=== PATIENT | female | born 1945 | race Caucasian/White ===

== ENCOUNTER 2018-08-06 15:38 | Emergency (ER) | payer MEDICARE, OTHER ==
[~2018-08-06] VITALS: Ht 177.8 cm; Wt 94.0 kg
[~2018-08-06 15:38] MED LIST: ASPI-496 PO; CARV-39 PO; CELE200C PO; LATA2.5D3 EACHEYE; LOSA50TA7 PO; MV,C400T2 PO; PRAV20TA2 PO
[2018-08-06] MEDS ORDERED: HYDR12.53 PO (16:24)
[2018-08-06] MEDS ORDERED: MAGN250T9 PO (16:24)
[2018-08-06] MEDS ORDERED: CARV6.252 PO (16:24)
[2018-08-06] MEDS ORDERED: CO Q10 PO (16:24)
[2018-08-06] MEDS ORDERED: SALM1CAP4 PO (16:24)
[2018-08-06] MEDS ORDERED: ATOR40TA78 PO (16:24)
[2018-08-06] MEDS ORDERED: ONDANSETRON ODT 4 MG ONE (16:45)
[2018-08-06] MEDS ORDERED: MORPHINE SULFATE 4 MG/ML, 1ML ONE (16:46)
[2018-08-06] MEDS ORDERED: DIAZEPAM 5 MG TABLET ONE (16:47)
[2018-08-06] MEDS ORDERED: DIAZEPAM 5 MG/ML, 2ML IVPush ONE (17:00)
[2018-08-06] MEDS ORDERED: ONDANSETRON ODT 4 MG PO ONE (17:00)
[2018-08-06] MEDS ORDERED: MORPHINE SULFATE 4 MG/ML, 1ML IVPush PRN (17:00)
[2018-08-06] MEDS ORDERED: SODIUM CHLORIDE FLUSH 10ML SYR IVF ONE (17:00)
[2018-08-06] MEDS ORDERED: DIAZEPAM 5 MG TABLET PO ONE (17:00)
[2018-08-06 17:04] LABS: BASOPHILS # (AUTO) 0.04 x10^3/uL (0-0.1); BASOPHILS % (AUTO) 1 % (0-1); EOSINOPHILS # (AUTO) 0.01 x10^3/uL (0-0.4); EOSINOPHILS % (AUTO) 0 % (1-7); LYMPHOCYTES # (AUTO) 1.64 x10^3/uL (1-3.4); LYMPHOCYTES % (AUTO) 21 % (22-44); MD NO; MEAN CORPUSCULAR HEMOGLOBIN 34.4 pg (27.0-34.8); MEAN CORPUSCULAR VOLUME 98.3 fL (80-100); MEAN PLATELET VOLUME 7.7 fL (7.4-10.4); MONOCYTES # (AUTO) 0.93 x10^3/uL (0.2-0.8); MONOCYTES % (AUTO) 12 % (2-9); NEUTROPHILS # (AUTO) 5.16 x10^3/uL (1.8-6.8); NEUTROPHILS % (AUTO) 66 % (42-75); PLATELET COUNT 201 x10^3/uL (130-400); RED BLOOD COUNT 3.53 x10^6/uL (3.82-5.3); RED CELL DISTRIBUTION WIDTH 12.2 % (9.6-15.2)
[2018-08-06 17:16] LABS: ALANINE AMINOTRANSFERASE 16 U/L (12-78); ALBUMIN 3.3 g/dL (3.4-5.0); ANION GAP 7 mmol/L (5-15); CHLORIDE 102 mmol/L (98-107)
[2018-08-06 17:18] LABS: ALKALINE PHOSPHATASE 155 U/L (45-117); BILIRUBIN,TOTAL 0.8 mg/dL (0.2-1.0); TOTAL PROTEIN 7.6 g/dL (6.4-8.2)
[2018-08-06 17:23] LABS: CULTURE INDICATED? NO; MICROSCOPIC NOT IND
[2018-08-06 17:52] VITALS: BP 133/59
== END 2018-08-06 18:20 | disposition home or self-care (01) ==
LOC: ED 17:45
DX: M54.5 Low back pain (principal); I10 Essential (primary) hypertension; E78.00 Pure hypercholesterolemia, unspecified; M19.90 Unspecified osteoarthritis, unspecified site; Z86.73 Personal history of transient ischemic attack (TIA), and cerebral infarction without residual deficits
CPT/HCPCS: 36415; 72110; 80053; 81003; 83690; 85025; 96374; 99285; Q0162

== ENCOUNTER → 2018-10-09 | Outpatient (CLI) | payer MEDICARE ==
[~2018-10-09] MED LIST changes: +ATOR40TA78 PO; +CARV6.252 PO; +CO Q10 PO; +HYDR12.53 PO; +MAGN250T9 PO; +RIVA20TA PO; +SALM1CAP4 PO
== END | disposition home or self-care (01) ==
LOC: STAR 09:58
PROVIDERS: ATTEND Urology
DX: Z01.818 Encounter for other preprocedural examination (principal); N20.0 Calculus of kidney
CPT/HCPCS: 93005

== ENCOUNTER 2018-10-14 09:57 | Day surgery (SDC) | payer MEDICARE ==
[~2018-10-14] VITALS: Ht 177.8 cm; Wt 90.5 kg
[2018-10-14] MEDS ORDERED: LACTATED RINGERS 1,000 ML IV SCH (10:23)
[2018-10-14 11:00] VITALS: BP 148/63
[2018-10-14] MEDS ORDERED: FENTANYL PF 100 MCG/2ML ONE ×2 (12:31→13:49)
[2018-10-14] MEDS ORDERED: MIDAZOLAM 1 MG/ML, 2ML ONE (12:31)
[2018-10-14] MEDS ORDERED: METOCLOPRAMIDE 5 MG/ML, 2ML ONE (12:33)
[2018-10-14] MEDS ORDERED: PROPOFOL 10 MG/ML, 20ML ONE (12:33)
[2018-10-14] MEDS ORDERED: DEXAMETHASONE 4 MG/ML, 1ML ONE (12:33)
[2018-10-14] MEDS ORDERED: LACTATED RINGERS 1,000 ML ONE (12:33)
[2018-10-14] MEDS ORDERED: ONDANSETRON 2MG/ML, 2ML ONE (12:33)
[2018-10-14] MEDS ORDERED: LIDOCAINE 2% 100MG/5ML SYRINGE ONE (12:33)
[2018-10-14] MEDS ORDERED: MEPERIDINE/PF 25MG/0.5ML IVPush PRN (13:30)
[2018-10-14] MEDS ORDERED: MIDAZOLAM 1 MG/ML, 2ML IV PRN (13:30)
[2018-10-14] MEDS ORDERED: ONDANSETRON 2MG/ML, 2ML IVPush PRN (13:30)
[2018-10-14] MEDS ORDERED: LABETALOL 5MG/ML, 20ML IV PRN (13:30)
[2018-10-14] MEDS ORDERED: OXYcodone 5 MG/5 ML ORAL.SOL UDC PO PRN (13:30)
[2018-10-14] MEDS ORDERED: HYDROmorphone 1 MG/ML, 1ML IV PRN (13:30)
[2018-10-14] MEDS ORDERED: OXYcodone 5 MG/5 ML ORAL.SOL UDC ONE (13:49)
[2018-10-14] MEDS: FENTANYL PF 100 MCG/2ML IV PRN ×2 (13:53→14:06)
[2018-10-14] MEDS ORDERED: hydrALAzine 20 MG/ML, 1ML ONE (14:15)
== END 2018-10-14 16:25 | disposition home or self-care (01) ==
LOC: OUT 09:57
PROVIDERS: ATTEND Urology
DX: N20.0 Calculus of kidney (principal); I10 Essential (primary) hypertension; M19.90 Unspecified osteoarthritis, unspecified site; E78.00 Pure hypercholesterolemia, unspecified; I25.2 Old myocardial infarction; F15.90 Other stimulant use, unspecified, uncomplicated; F17.210 Nicotine dependence, cigarettes, uncomplicated; Z72.89 Other problems related to lifestyle; Z79.899 Other long term (current) drug therapy; Z88.0 Allergy status to penicillin; Z90.710 Acquired absence of both cervix and uterus; Z98.890 Other specified postprocedural states; Z86.73 Personal history of transient ischemic attack (TIA), and cerebral infarction without residual deficits; Z96.643 Presence of artificial hip joint, bilateral
CPT/HCPCS: 50590; J1100; J2250; J2405; J2704; J2765; J3010; J7120

== ENCOUNTER 2021-05-17 17:28 | Emergency (ER) | payer MEDICARE ==
[~2021-05-17] VITALS: Ht 177.8 cm; Wt 89.9 kg
[~2021-05-17 17:28] MED LIST changes: +HYDR12.517 PO; -HYDR12.53 PO; -LATA2.5D3 EACHEYE; +LATA2.5D4 EACHEYE; +LOSA50TA14 PO; -LOSA50TA7 PO
[2021-05-17] MEDS ORDERED: KETOROLAC 30 MG/1 ML IM ONE (18:00)
--- NOTE | 2021-05-17 18:09 | NUR ---
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
[2021-05-17] MEDS ORDERED: KETOROLAC 30 MG/1 ML ONE (18:18)
[2021-05-17 18:25] LABS: MICROSCOPIC AUTO
[2021-05-17] MEDS ORDERED: HYDROmorphone 1 MG/ML, 1ML INJ ONE (18:29)
[2021-05-17] MEDS ORDERED: HYDROmorphone 1 MG/ML, 1ML INJ SQ STA (18:39)
[2021-05-17 18:45] LABS: BASOPHILS % (AUTO) 1 % (0-1); EOSINOPHILS % (AUTO) 1 % (1-7); LYMPHOCYTES % (AUTO) 34 % (22-44); MEAN CORPUSCULAR HGB CONC 34.3 g/dL (32.4-35.8); MEAN PLATELET VOLUME 7.3 fL (7.4-10.4); MONOCYTES % (AUTO) 11 % (2-9); NEUTROPHILS % (AUTO) 53 % (42-75); PLATELET COUNT 179 x10^3/uL (130-400); RED CELL DISTRIBUTION WIDTH 13.6 % (9.6-15.2)
--- NOTE | 2021-05-17 18:45 | NUR ---
PT MEDICATED PER ERP ORDER FOR 07/10 RLQ AND R FLANK PAIN. LAB IN TO DRAW. VSS/UPDATED IN COMPUTER. AWAITING CT. CALL LIGHT WITHIN REACH, WARM BLANKET PROVIDED, AT BS.
[2021-05-17 18:57] LABS: ALANINE AMINOTRANSFERASE 32 U/L (12-78); ALBUMIN 3.8 g/dL (3.4-5.0); ANION GAP 9 mmol/L (5-15); CALCIUM 8.6 mg/dL (8.5-10.1); CHLORIDE 107 mmol/L (98-107); CREATININE 0.75 mg/dL (0.55-1.02)
--- NOTE | 2021-05-17 18:58 | NUR ---
Report from OLGA Stevens. Pt waiting for labs/urine results, vss appears comfortable.
[2021-05-17 18:59] LABS: ALKALINE PHOSPHATASE 293 U/L (45-117); BILIRUBIN,TOTAL 0.7 mg/dL (0.2-1.0)
[2021-05-17] MEDS ORDERED: HYDROmorphone 1 MG/ML, 1ML INJ SQ ONE (19:00)
--- NOTE | 2021-05-17 19:00 | NUR ---
Pt reports pain significantly decrease after medications, RR equal and unlabored. Call light in reach, rails up, on cont pulse ox/b/p, at bedside. AIDET provided.
--- NOTE | 2021-05-17 20:32 | NUR ---
CT resulted, waiting for re-eval by ERP.
--- NOTE | 2021-05-17 20:45 | NUR ---
ERP in to re-evaluate pt, comfortable at this time. Waiting for further orders/dispo. VSS
[2021-05-17 20:59] VITALS: BP 135/71
--- NOTE | 2021-05-17 21:00 | NUR ---
dc home with instruct, rx to family care. Pt and family verbalize understanding of instruct and f/u. To return to ER if worse or concerns. VSS.
== END 2021-05-17 21:11 | disposition home or self-care (01) ==
LOC: ED 21:05
DX: N13.2 Hydronephrosis with renal and ureteral calculous obstruction (principal); I11.0 Hypertensive heart disease with heart failure
CPT/HCPCS: 36415; 74176; 80053; 81001; 85025; 87086; 96372; 99284; J1170; J1885